=== PATIENT | female | born 1940 | race Caucasian/White ===

== ENCOUNTER 2019-01-13 13:55 | Inpatient (IN) | payer MEDICARE, OTHER ==
[~2019-01-13] VITALS: Ht 157.5 cm; Wt 93.0 kg
[2019-01-13] MEDS ORDERED: NITROGLYCERIN 0.4 MG SUBL TABLET SL STA (14:29)
[2019-01-13] MEDS ORDERED: ASPIRIN 81 MG CHEW TABLET PO ONE (14:30)
--- NOTE | 2019-01-13 15:10 | REP ---
Clinical: Chest pain . Comparison: None . Technique: PA and lateral. Findings: Cardiac silhouette is normal. Evidence of prior sternotomy and aortic valve repair. Lung parker demonstrate chronic appearing interstitial changes without acute consolidation, effusion, or pneumothorax. The skeletal structures are intact and normal. Impression: 1. No definite acute process. Electronically Signed by Maxx Ohara MD 01/13/2019 03:02 P
[2019-01-13 15:21] LABS: BASO % 0.4 % (0.0-1.0); EOS # 0.3 10^3/uL (0.0-0.5); EOS % 2.9 % (0.0-3.0); HEMATOCRIT 34.2 % (36.0-47.0); HEMOGLOBIN 10.9 g/dl (12.0-15.5); LYMPH # 1.4 10^3/uL (1.5-5.0); MEAN CORPUSCULAR HEMOGLOBIN 30.3 pg (27.0-33.0); MEAN CORPUSCULAR HGB CONC 31.9 g/dl (32.0-36.5); MONO % 9.5 % (0.0-5.0); NEUTROPHILS # 7.3 10^3/uL (1.5-8.5); NEUTROPHILS % 72.9 % (36.0-66.0); PLATELET COUNT, AUTOMATED 279 10^3/uL (150-450)
[2019-01-13 15:37] LABS: INR 1.03; PARTIAL THROMBOPLASTIN TIME 27.9 SECONDS (25.0-38.4); PROTHROMBIN TIME 13.2 SECONDS (11.8-14.0)
[2019-01-13] MEDS ORDERED: ATOR1TAB21 PO (15:44)
[2019-01-13] MEDS ORDERED: PANT40TA3 PO (15:44)
[2019-01-13] MEDS ORDERED: SYNT150T PO (15:44)
[2019-01-13] MEDS ORDERED: XANA0.5T PO (15:44)
[2019-01-13] MEDS ORDERED: TRAZ-189 PO (15:44)
[2019-01-13] MEDS ORDERED: LEXA1TAB2 PO (15:44)
[2019-01-13] MEDS ORDERED: CARV6.25 PO (15:44)
[2019-01-13] MEDS ORDERED: TORS20TA2 PO (15:44)
[2019-01-13 16:24] LABS: ALT/SGPT 21 U/L (12-78); BILIRUBIN,DIRECT 0.1 MG/DL (0.0-0.2); BILIRUBIN,TOTAL 0.4 MG/DL (0.2-1.0); BLOOD UREA NITROGEN 30 MG/DL (7-18); CALCIUM LEVEL 8.5 MG/DL (8.8-10.2); CARBON DIOXIDE LEVEL 33 MEQ/L (21-32); CHLORIDE LEVEL 93 MEQ/L (98-107); CK-MB VALUE MASS 1.1 NG/ML (<3.6); CPK CREATINE PHOSPHOKINASE 60 U/L (26-192); CREATININE FOR GFR 1.73 MG/DL (0.55-1.30); FREE T4 1.05 NG/DL (0.76-1.46); GLOMERULAR FILTRATION RATE 30.2 (>39); GLUCOSE, FASTING 582 MG/DL (70-100); LIPASE 91 U/L (73-393); MB/CK RELATIVE INDEX 1.83 (< OR =4); POTASSIUM SERUM 3.9 MEQ/L (3.5-5.1); SODIUM LEVEL 132 MEQ/L (136-145); TROPONIN I < 0.02 NG/ML (< 0.10)
[2019-01-13] MEDS ORDERED: ECOT81TA5 PO (17:49)
[2019-01-13] MEDS ORDERED: INSUDET SC (17:49)
[2019-01-13] MEDS ORDERED: INSUHUMDS SC (17:49)
--- NOTE | 2019-01-13 18:47 | REPVR ---
EXAM: US Duplex Bilateral Lower Extremity Veins EXAM DATE/TIME: 01/13/2019 6:23 PM CLINICAL HISTORY: 78 years old, female; Pain; Leg, lower; Bilateral; Additional info: Pleuritic chest pain elev d-dimer eval for dvt TECHNIQUE: Imaging protocol: Real-time duplex ultrasound of the Bilateral Lower Extremities with 2-D chanel scale, color Doppler flow and spectral waveform analysis with image documentation. Complete exam focused on the bilateral lower extremity veins. COMPARISON: No relevant prior studies available. FINDINGS: Right deep veins: Unremarkable. The common femoral, and popliteal veins are patent without thrombus. Normal Doppler waveforms. Normal compressibility and/or augmentation response. Right superficial veins: Saphenofemoral junction is patent without thrombus. Left deep veins: Unremarkable. The common femoral, femoral and popliteal veins are patent without thrombus. Normal Doppler waveforms. Normal compressibility and/or augmentation response. Left superficial veins: Saphenofemoral junction is patent without thrombus. Soft tissues: Unremarkable. IMPRESSION: No sonographic evidence of deep vein thrombosis. Electronically signed by: Roel Ballesteros On 01/13/2019 18:46:53 PM
[2019-01-13] MEDS ORDERED: MAALOX 30 ML SUSP *UDC PO PRN (19:15)
[2019-01-13] MEDS ORDERED: DEXTROSE 50% 50 ML SYRINGE IV PRN (19:15)
[2019-01-13] MEDS ORDERED: GLUCAGON FOR INJ 1 MG VIAL (J1610) SC PRN (19:15)
[2019-01-13] MEDS ORDERED: GLUCOSE 4 GM CHEW TABLET PO PRN (19:15)
[2019-01-13] MEDS ORDERED: ALPRAZolam 0.5 MG TAB PO PRN (19:15)
[2019-01-13] MEDS ORDERED: ALBUTEROL SULFATE 2.5 MG/0.5 ML INH NEB SOLN NEB PRN (19:15)
--- NOTE | 2019-01-13 19:32 | HPEPDOC ---
General Date of Admission Date of Service: Jan 13, 2019 Chief Complaint The patient is a 78-year-old female admitted with a reason for visit of Chest Pain. History of Present Illness 78f with hx of dm, ckd unknown baseline, former smoker with possible copd, cad with previous cabg, p/w chest pain. The pain is described as sharp and significant. It is located along the length of her sternum. It worsens with coughing, breathing, or touching the area. This started yesterday. She flew up from [place] one week ago. She has a chronic cough, denies sob, leg swelling, or exercise intolerance. A full ROS was performed and negative except as above. Home Medications Scheduled Aspirin (Ecotrin) 81 Mg Tablet.dr, 81 MG PO DAILY, (Reported) Atorvastatin Calcium (Atorvastatin Calcium) 20 Mg Tablet, 20 MG PO DAILY, (Reported) Carvedilol (Carvedilol) 6.25 Mg Tablet, 6.25 MG PO BID, (Reported) Escitalopram Oxalate (Lexapro) 20 Mg Tablet, 20 MG PO DAILY, (Reported) Insulin Detemir (Levemir) 100 Unit/1 Ml Vial, 35 UNITS SC BID, (Reported) Insulin Human Lispro (Humalog) 100 Unit/1 Ml Vial, 1 DOSE SC AC, (Reported) PER SLIDING SCALE Levothyroxine Sodium (Synthroid) 150 Mcg Tablet, 150 MCG PO DAILY, (Reported) Pantoprazole Sodium (Pantoprazole Sodium) 40 Mg Tablet.dr, 40 MG PO DAILY, (Reported) Torsemide (Torsemide) 20 Mg Tablet, 20 MG PO DAILY, (Reported) Trazodone HCl (Trazodone HCl) 100 Mg Tablet, 100 MG PO QHS, (Reported) Scheduled PRN Alprazolam (Xanax) 0.5 Mg Tablet, 0.5 MG PO DAILY PRN for ANXIETY, (Reported) Allergies Coded Allergies: No Known Drug Allergies (Verified Allergy, Unknown, 01/13/19) Family History Significant Family History: No pertinent family hx Social History * Smoker: former Smoker Alcohol: Denies Drugs: denies A-FIB/CHADSVASC A-FIB History Current/History of A-Fib/PAF?: No Current PO Anticoag Therapy: No Age/Risk Factor Scoring CHADSVASC: CHADSVASC Response (Comments) Value Age Risk Factor Age >/= 75 years old 2 Gender Risk Factor Female 1 Hx of CHF No 0 Hx of HTN Yes 1 Hx of Stroke/TIA/or VTE No 0 Hx of Diabetes Yes 1 Hx of Vascular Disease No 0 Total 5 Treatment Treatment ordered: NONE Reason Anticoagulant not given: Not indicated/[id number] Physical Examination General Exam: Positive: Alert, No Acute Distress Eye Exam: Positive: PERRLA, Conjunctiva & lids normal, EOMI; Negative: Sclera icteric ENT Exam: Positive: Atraumatic, Mucous membr. moist/pink, Pharynx Normal Neck Exam: Positive: Supple; Negative: JVD, thyromegaly Chest Exam: Positive: Clear to auscultation, Normal air movement, Other (pain on palpation of sternum, no rash or cellulitis noted) Heart Exam: Positive: Rate Normal, Regular Rhythm, Normal S1, Normal S2; Negative: Murmurs, Rubs Telemetry: Positive: No significant arrhythmia Abdomen Exam: Positive: Normal bowel sounds, Soft; Negative: Tenderness, Hepatospenomegaly Extremity Exam: Positive: Normal pulses; Negative: Clubbing, Cyanosis, Edema Skin Exam: Positive: Nl turgor and temperature; Negative: Breakdown, Lesion Neuro Exam: Positive: Normal Gait, Normal Speech, Cranial Nerves 3-12 NL, Reflexes 2+ Psych Exam: Positive: Mental status NL, Mood NL, Oriented x 3 Vital Signs Vital Signs Date Time Temp Pulse Resp B/P (MAP) Pulse Ox O2 Delivery O2 Flow Rate FiO2 01/13/19 15:05 01/13/19 14:40 86 20 94 Room Air 01/13/19 13:56 98.6 Laboratory Data Labs 24H Laboratory Tests 2 01/13/19 14:49: Immature Granulocyte % (Auto) 0.3, White Blood Count 10.0, Red Blood Count 3.60L, Hemoglobin 10.9L, Hematocrit 34.2L, Mean Corpuscular Volume 95.0, Mean Corpuscular Hemoglobin 30.3, Mean Corpuscular Hemoglobin Concent 31.9L, Red Cell Distribution Width 14.0, Platelet Count 279, Neutrophils (%) (Auto) 72.9H, Lymphocytes (%) (Auto) 14.0L, Monocytes (%) (Auto) 9.5H, Eosinophils (%) (Auto) 2.9, Basophils (%) (Auto) 0.4, Neutrophils # (Auto) 7.3, Lymphocytes # (Auto) 1.4L, Monocytes # (Auto) 1.0H, Eosinophils # (Auto) 0.3, Basophils # (Auto) 0.0, Nucleated Red Blood Cells % (auto) 0.0, D-Dimer, Quantitative 967.87H, Anion Gap 6L, Glomerular Filtration Rate 30.2L, Calcium Level 8.5L, Aspartate Amino Transf (AST/SGOT) 15, Alanine Aminotransferase (ALT/SGPT) 21, Alkaline Phosphatase 181H, Total Bilirubin 0.4, Direct Bilirubin 0.1, Total Creatine Kinase 60, Creatine Kinase MB 1.1, Creatine Kinase MB Relative Index 1.83, Troponin I < 0.02, Total Protein 7.0, Albumin 3.0L, Albumin/Globulin Ratio 0.75L, Lipase 91, Thyroid Stimulating Hormone (TSH) 1.300, Free Thyroxine 1.05 01/13/19 14:57: Prothrombin Time 13.2, Prothromb Time International Ratio 1.03, Activated Partial Thromboplast Time 27.9 CBC/BMP Laboratory Tests 01/13/19 14:49 Red Blood Count 3.60 L, Mean Corpuscular Volume 95.0, Mean Corpuscular Hemoglobin 30.3, Mean Corpuscular Hemoglobin Concent 31.9 L, Red Cell Distribution Width 14.0, Neutrophils (%) (Auto) 72.9 H, Lymphocytes (%) (Auto) 14.0 L, Monocytes (%) (Auto) 9.5 H, Eosinophils (%) (Auto) 2.9, Basophils (%) (Auto) 0.4, Neutrophils # (Auto) 7.3, Lymphocytes # (Auto) 1.4 L, Monocytes # (Auto) 1.0 H, Eosinophils # (Auto) 0.3, Basophils # (Auto) 0.0 Assessment/Plan 78f p/w pleuritic chest pain and hyperglycemia suspect skeletal source concern was raised for pe unable to get cta due to ckd unable to get vq due to weekend ddimer was elevated leg dopplers negative consider vq on tuesday cardiac monitoring will repeat troponin in am dm hyperglycemia ?missed lunch lispro dose continue levemir monitor fingersticks sliding scale diabetic diet ckd unknown baseline will provide gentle hydration avoid nephrotoxins Plan / VTE VTE Prophylaxis Ordered?: Yes NATHAN FOOTE MD Jan 13, 2019 19:32
--- NOTE | 2019-01-13 19:37 | ECGEPIP ---
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
[2019-01-13] MEDS: HumaLOG INSULIN (NovoLOG) PER UNIT SC SCH (20:35)
[2019-01-13] MEDS: NS 1,000 ML IV SCH (20:36)
[2019-01-13 21:32] VITALS: BP 143/71
[2019-01-13] MEDS: LEVEMIR (INSULIN DETEMIR) 1 UNITS/0.01ML SC SCH (21:59)
[2019-01-13 22:00] VITALS: BP 143/71
[2019-01-13] MEDS: CARVedilol 6.25 MG TAB PO SCH (22:00)
[2019-01-13] MEDS: HEPARIN SOD (PORCINE) 5000 UNITS/ML VIAL SC SCH (22:00)
[2019-01-13] MEDS: traZODone 100 MG TAB PO SCH (22:00)
[2019-01-14] MEDS: ACETAMINOPHEN TAB 650MG DOSE (2X325MG) PO PRN ×3 (01:03→21:55)
[2019-01-14] MEDS: LEVOTHYROXINE 150MCG TABLET (0.15MG) PO SCH (05:41)
[2019-01-14 06:00] VITALS: BP 149/65
[2019-01-14 06:19] LABS: BASO % 0.4 % (0.0-1.0); EOS # 0.3 10^3/uL (0.0-0.5); EOS % 3.4 % (0.0-3.0); HEMATOCRIT 30.9 % (36.0-47.0); HEMOGLOBIN 9.9 g/dl (12.0-15.5); LYMPH # 1.8 10^3/uL (1.5-5.0); LYMPH % 23.3 % (24.0-44.0); MEAN CORPUSCULAR VOLUME 93.6 fl (80.0-96.0); MONO # 0.9 10^3/uL (0.0-0.8); NEUTROPHILS # 4.7 10^3/uL (1.5-8.5); NEUTROPHILS % 60.5 % (36.0-66.0); PLATELET COUNT, AUTOMATED 266 10^3/uL (150-450); WHITE BLOOD COUNT 7.7 10^3/uL (4.0-10.0)
[2019-01-14 06:49] LABS: CALCIUM LEVEL 8.8 MG/DL (8.8-10.2); CREATININE FOR GFR 1.43 MG/DL (0.55-1.30); GLOMERULAR FILTRATION RATE 37.7 (>39); POTASSIUM SERUM 3.6 MEQ/L (3.5-5.1)
[2019-01-14] MEDS: HumaLOG INSULIN (NovoLOG) PER UNIT SC SCH ×3 (08:48→17:26)
[2019-01-14] MEDS: LEVEMIR (INSULIN DETEMIR) 1 UNITS/0.01ML SC SCH ×2 (08:48→20:01)
[2019-01-14] MEDS: HEPARIN SOD (PORCINE) 5000 UNITS/ML VIAL SC SCH ×2 (08:49→20:01)
[2019-01-14] MEDS: TORSEMIDE 20 MG TAB PO SCH (08:51)
[2019-01-14] MEDS: ESCITALOPRAM OXALATE 10 MG TAB (LEXAPRO) PO SCH (08:51)
[2019-01-14] MEDS: ASPIRIN 81 MG ENTERIC TAB PO SCH (08:51)
[2019-01-14] MEDS: CARVedilol 6.25 MG TAB PO SCH ×2 (08:52→20:03)
[2019-01-14] MEDS: PANTOPRAZOLE 40MG TAB (PROTONIX) PO SCH (08:52)
[2019-01-14] MEDS: ATORVASTATIN 20 MG TAB PO SCH (08:52)
[2019-01-14] MEDS ORDERED: PREVNAR 13 VACCINE SYRINGE (CPT CODE:90670) IM ONE (09:00)
[2019-01-14] MEDS: NS 1,000 ML IV SCH ×2 (09:44→23:20)
[2019-01-14 14:00] VITALS: BP 123/60
--- NOTE | 2019-01-14 16:13 | IPNPDOC ---
Text Note Date of Service The patient was seen on 01/14/19. NOTE Ms. Menard is admitted with anterior chest wall pain. Concern is raised for pu lmonary embolus versus costochondritis. She has not had any shortness of breath or hypoxia. Objective: HENT: Neck is supple with no adenopathy or thyromegaly, oral mucosa is moist. Cardiovascular: Regular rate and rhythm, no real appreciable murmur Respiratory: Patient does not have significant pain to deep inspiration, she does have some pain to her lower sternum to pressure palpation of her anterior chest wall, she is otherwise clear to auscultation, there is no rhonchi, rales, wheezes or rub. She does not have an active cough. Abdomen: Soft, moderate central obesity, otherwise benign to exam. Extremities: No remarkable peripheral edema, pedal pulses are palpable Assessment/plan #1. Chest pain. This is cardiac versus noncardiac. We will continue to look at an additional troponin to rule out cardiac cause. Noncardiac causes include pulmonary embolus versus costochondritis. Patient does have some chronic kidney injury that may not allow us to make use of a contrast study such as CT angio. We will continue to monitor her renal function response to hydration. We can consider VQ scan to rule out a pulmonary embolus. We also limited if the patient has costochondritis. Patient does have an element of kidney disease that would possibly prevent making use of [id number] NSAIDs. We may need to consider making use of colchicine. The patient does not have remarkable complaints of pain at the moment, however. In the interim she remains on heparin. 2. Kidney injury. This appears to be acute on chronic disease. Creatinine has decreased from 1.73 to 1.43 with IV hydration. He may be able to undergo evaluation by CT angiogram by tomorrow. VS,Fishbone, I+O VS, Fishbone, I+O Laboratory Tests 01/14/19 05:46 Red Blood Count 3.30 L, Mean Corpuscular Volume 93.6, Mean Corpuscular Hemoglobin 30.0, Mean Corpuscular Hemoglobin Concent 32.0, Red Cell Distribution Width 14.1, Neutrophils (%) (Auto) 60.5, Lymphocytes (%) (Auto) 23.3 L, [place] cytes (%) (Auto) 12.0 H, Eosinophils (%) (Auto) 3.4 H, Basophils (%) (Auto) 0.4, Neutrophils # (Auto) 4.7, Lymphocytes # (Auto) 1.8, Monocytes # (Auto) 0.9 H, Eosinophils # (Auto) 0.3, Basophils # (Auto) 0.0, Calcium Level 8.8 Vital Signs Date Time Temp Pulse Resp B/P (MAP) Pulse Ox O2 Delivery O2 Flow Rate FiO2 01/14/19 14:00 98.1 81 18 123/60 (81) 92 01/13/19 21:15 Room Air I&O- Last 24 Hours up to 6 AM 01/14/19 06:00 Intake Total 1162.5 ml Output Total 0 ml Balance 1162.5 ml SHADY PEÑA MD Jan 14, 2019 16:13
[2019-01-14 20:00] VITALS: BP 170/72
[2019-01-14] MEDS: traZODone 100 MG TAB PO SCH (20:01)
[2019-01-15 02:00] VITALS: BP 138/73
[2019-01-15 06:00] VITALS: BP 158/77
[2019-01-15] MEDS: LEVOTHYROXINE 150MCG TABLET (0.15MG) PO SCH (06:06)
[2019-01-15 06:40] LABS: BLOOD UREA NITROGEN 27 MG/DL (7-18); C REACTIVE PROTEIN QUANTITATIV 8.99 MG/DL (0.00-0.30); CALCIUM LEVEL 8.9 MG/DL (8.8-10.2); CARBON DIOXIDE LEVEL 28 MEQ/L (21-32); CHLORIDE LEVEL 105 MEQ/L (98-107); CREATININE FOR GFR 1.42 MG/DL (0.55-1.30); GLUCOSE, FASTING 197 MG/DL (70-100); POTASSIUM SERUM 3.7 MEQ/L (3.5-5.1); SODIUM LEVEL 140 MEQ/L (136-145); TROPONIN I < 0.02 NG/ML (< 0.10)
[2019-01-15] MEDS: LEVEMIR (INSULIN DETEMIR) 1 UNITS/0.01ML SC SCH (08:10)
[2019-01-15] MEDS: HumaLOG INSULIN (NovoLOG) PER UNIT SC SCH (08:10)
[2019-01-15] MEDS: ESCITALOPRAM OXALATE 10 MG TAB (LEXAPRO) PO SCH (08:11)
[2019-01-15] MEDS: TORSEMIDE 20 MG TAB PO SCH (08:11)
[2019-01-15] MEDS: HEPARIN SOD (PORCINE) 5000 UNITS/ML VIAL SC SCH (08:11)
[2019-01-15] MEDS: ASPIRIN 81 MG ENTERIC TAB PO SCH (08:11)
[2019-01-15] MEDS: ATORVASTATIN 20 MG TAB PO SCH (08:11)
[2019-01-15] MEDS: PANTOPRAZOLE 40MG TAB (PROTONIX) PO SCH (08:11)
[2019-01-15 08:12] VITALS: BP 168/92
[2019-01-15] MEDS: CARVedilol 6.25 MG TAB PO SCH (08:12)
[2019-01-15] MEDS ORDERED: INSUDET SC (11:07)
[2019-01-15] MEDS ORDERED: MEDR4PAK PO (11:07)
[2019-01-15] MEDS ORDERED: HUMA100I5 SC (11:07)
[2019-01-15] MEDS: NS 1,000 ML IV SCH (11:30)
--- NOTE | 2019-01-15 20:58 | DS.PDOC ---
Discharge Summary General Date of Admission Jan 13, 2019 at 19:11 Date of Discharge January 15, 2019 Primary Care Physician: ROSIE CARIAS DO Discharge Summary PROCEDURES PERFORMED DURING STAY: [None]. ADMITTING DIAGNOSES: 1. [Atypical Chest Pain]. DISCHARGE DIAGNOSES: 1. [Costochondritis, CAD, NIDDM, COPD, CKD II]. COMPLICATIONS/CHIEF COMPLAINT: Plauritic Chest Pain. HISTORY OF PRESENT ILLNESS/HOSPITAL COURSE: [78 year old female with history of CAD with CABG presented with chest pain. Pain was primarily to chest wall. Troponin negative on 3 occasions at < 0.02. EKG unremarkable; ruled out for acute coronary syndrome. Inflammatory indicators were elevated--ESR was 86 and CRP 8.99. Patient was felt to have costochondritis. She did not require aggressive medical treatment such as prednisone or colchicine. She improved clinically and was stable for discharge.]. DISCHARGE MEDICATIONS: Please see below. ALLERGIES: Please see below. PHYSICAL EXAMINATION ON DISCHARGE: HENT: Neck is supple with no adenopathy or thyromegaly, oral mucosa is moist. Cardiovascular: Regular rate and rhythm, no real appreciable murmur Respiratory: Patient does not have significant pain to deep inspiration, she reports pain to her lower sternum is resolved, she is otherwise clear to au scultation, there is no rhonchi, rales, wheezes or rub. She does not have an active cough. Abdomen: Soft, moderate central obesity, otherwise benign to exam. Extremities: No remarkable peripheral edema, pedal pulses are palpable LABORATORY DATA: Please see below. IMAGING: PROGNOSIS: ACTIVITY: [As tolerated]. DIET: [Heart Healthy] DISCHARGE PLAN: [Patient is from out of town but plans to follow up locally with Dr. Carias within 1 - 2 weeks.] DISPOSITION: 01 Home, Self-Care. DISCHARGE INSTRUCTIONS: 1. . ITEMS TO FOLLOWUP ON ON OUTPATIENT: 1. . DISCHARGE CONDITION: [Stable]. TIME SPENT ON DISCHARGE: Greater than [40] minutes. Vital Signs/I&Os Vital Signs Date Time Temp Pulse Resp B/P (MAP) Pulse Ox O2 Delivery O2 Flow Rate FiO2 01/15/19 08:12 78 168/92 01/15/19 06:00 97.6 20 96 01/13/19 21:15 Room Air I&O- Last 24 Hours up to 6 AM 01/15/19 08:00 Intake Total 2840 ml Output Total 2 ml Balance 2838 ml Laboratory Data Labs 24H Laboratory Tests 2 01/14/19 21:00: Bedside Glucose (Misc Panel) 275H 01/15/19 05:39: Erythrocyte Sedimentation Rate 86H, Anion Gap 7L, Glomerular Filtration Rate 38.0L, Blood Urea Nitrogen 27H, Creatinine 1.42H, Sodium Level 140, Potassium Level 3.7, Chloride Level 105, Carbon Dioxide Level 28, Calcium Level 8.9, Troponin I < 0.02, C-Reactive Protein, Quantitative 8.99H CBC/BMP Laboratory Tests 01/15/19 05:39 Calcium Level 8.9 FSBS Laboratory Tests Test 01/14/19 21:00 Range/Units Bedside Glucose (Misc Panel) 275 83-110 MG/DL Discharge Medications Scheduled Aspirin (Ecotrin) 81 Mg Tablet.dr, 81 MG PO DAILY, (Reported) Atorvastatin Calcium (Atorvastatin Calcium) 20 Mg Tablet, 20 MG PO DAILY, (Reported) Carvedilol (Carvedilol) 6.25 Mg Tablet, 6.25 MG PO BID, (Reported) Escitalopram Oxalate (Lexapro) 20 Mg Tablet, 20 MG PO DAILY, (Reported) Insulin Detemir (Levemir) 100 Unit/1 Ml Vial, 35 UNITS SC BID Insulin Human Lispro (Humalog) 100 Unit/1 Ml Vial, 1 DOSE SC AC, (Reported) PER SLIDING SCALE Insulin Lispro (Humalog Kwikpen U-100) 100 Unit/1 Ml Insuln.pen, 100 UNITS SC AC Levothyroxine Sodium (Synthroid) 150 Mcg Tablet, 150 MCG PO DAILY, (Reported) Methylprednisolone (Medrol) 4 Mg Tab.ds.pk, 1 DP PO ASDIRECTED 6 on day 1 then reduce by one tablet daily until gone Pantoprazole Sodium (Pantoprazole Sodium) 40 Mg Tablet.dr, 40 MG PO DAILY, (Reported) Torsemide (Torsemide) 20 Mg Tablet, 20 MG PO DAILY, (Reported) Trazodone HCl (Trazodone HCl) 100 Mg Tablet, 100 MG PO QHS, (Reported) Scheduled PRN Alprazolam (Xanax) 0.5 Mg Tablet, 0.5 MG PO DAILY PRN for ANXIETY, (Reported) Allergies Coded Allergies: No Known Drug Allergies (Verified Allergy, Unknown, 01/13/19) SHADY PEÑA MD Jan 15, 2019 20:58
== END 2019-01-15 12:54 | disposition home or self-care (01) | DRG 206 ==
LOC: M ED 13:55 → M ED INP 19:11 → M MSPAV 21:25
PROVIDERS: ADMIT Hospitalist; ATTEND Internal Medicine
DX: M94.0 Chondrocostal junction syndrome [Tietze] (principal); E11.65 Type 2 diabetes mellitus with hyperglycemia; E11.22 Type 2 diabetes mellitus with diabetic chronic kidney disease; N18.2 Chronic kidney disease, stage 2 (mild); J44.9 Chronic obstructive pulmonary disease, unspecified; I25.10 Atherosclerotic heart disease of native coronary artery without angina pectoris; Z79.82 Long term (current) use of aspirin; Z79.4 Long term (current) use of insulin; Z87.891 Personal history of nicotine dependence; Z79.899 Other long term (current) drug therapy